=== PATIENT | female | born 1970 | race Two or more races ===

== ENCOUNTER 2017-11-16 12:16 | Emergency (ER) | payer MEDICAID ==
[~2017-11-16] VITALS: Ht 167.6 cm; Wt 80.0 kg
[2017-11-16 14:39] LABS: BASOPHILS % 0.8 % (0.0-2.0); EOSINOPHILS % 1.8 % (0.0-5.0); HEMATOCRIT. 38.9 % (36.0-48.0); HEMOGLOBIN. 13.3 g/dL (12.0-16.0); LYMPHOCYTES % 30.6 % (20.0-50.0); MEAN CORPUSCULAR HEMOGLOBIN 30.3 pg (28.0-32.0); MEAN CORPUSCULAR VOLUME 88.5 fL (81.0-99.0); MEAN PLATELET VOLUME 7.8 fl (7.4-10.4); MONOCYTES % 5.8 % (2.0-8.0); PLATELET 264 x1000/uL (130-400); RED CELL DISTRIBUTION WIDTH 13.9 % (11.6-14.6)
[2017-11-16 14:45] LABS: CHLORIDE 107 mEq/L (98-107)
[2017-11-16] MEDS ORDERED: MORPHINE SULFATE 4 MG/ML CPJ (NOT FOR IM USE) IV STA (14:49)
[2017-11-16] MEDS ORDERED: SODIUM CHLORIDE 0.9% 1,000 ML IV ONE (14:49)
[2017-11-16] MEDS ORDERED: ONDANSETRON HCL 4MG/2ML VIAL IV STA (14:49)
[2017-11-16 14:57] LABS: T4 FREE 0.98 ng/dL (0.76-1.46)
[2017-11-16] MEDS ORDERED: KCL 10MEQ/50ML PREMIX 50 ML IV ONE (15:00)
[2017-11-16] MEDS ORDERED: DIATR MEGLU/DIATRIZOATE SOLN 30ML ONE (15:20)
[2017-11-16] MEDS ORDERED: DIATR MEGLU/DIATRIZOATE SOLN 30ML PO ONE (16:45)
[2017-11-16 16:51] LABS: CLARITY URINE CLEAR (CLEAR); COLOR URINE YELLOW (YELLOW); KETONES URINE NEGATIVE (NEGATIVE); LEUKOCYTE ESTERASE URINE NEGATIVE (NEGATIVE); NITRITE URINE NEGATIVE (NEGATIVE); OCCULT BLOOD URINE 1+ (NEGATIVE); PH URINE 5.5 (4.5-8.0); PROTEIN URINE NEGATIVE (NEGATIVE); SPECIFIC GRAVITY URINE 1.014 (1.005-1.030)
[2017-11-16 17:02] LABS: HCG SCREEN NEGATIVE
[2017-11-16 19:40] VITALS: BP 127/94
[2017-11-16] MEDS ORDERED: IOHEXOL-300 100 ML BOTTLE ONE (21:21)
== END 2017-11-16 19:57 | disposition home or self-care (01) ==
LOC: ER 12:16
DX: R10.9 Unspecified abdominal pain (principal); D25.9 Leiomyoma of uterus, unspecified; Z90.49 Acquired absence of other specified parts of digestive tract; K76.0 Fatty (change of) liver, not elsewhere classified; N83.8 Other noninflammatory disorders of ovary, fallopian tube and broad ligament; F32.9 Major depressive disorder, single episode, unspecified; F17.200 Nicotine dependence, unspecified, uncomplicated
CPT/HCPCS: 36415; 71045; 74177; 76705; 80053; 81003; 83690; 84439; 84443; 84484; 84703; 85025; 85610; 85730; 93005; 96365; 96375; 99285; J2270; J2405; J3480; J7030; Q9967; Q9963

== ENCOUNTER 2018-12-13 08:28 | Emergency (ER) | payer MEDICAID ==
[~2018-12-13] VITALS: Ht 167.6 cm; Wt 88.0 kg
[2018-12-13 10:06] LABS: HEMATOCRIT. 40.3 % (36.0-48.0); HEMOGLOBIN. 13.8 g/dL (12.0-16.0); LYMPHOCYTES % 31.8 % (20.0-50.0); MEAN CORPUSCULAR HEMOGLOBIN 30.5 pg (28.0-32.0); MEAN CORPUSCULAR VOLUME 88.9 fL (81.0-99.0); MEAN PLATELET VOLUME 7.7 fl (7.4-10.4); MONOCYTES % 6.7 % (2.0-8.0); NEUTROPHILS % 59.5 % (40.0-76.0); PLATELET 246 x1000/uL (130-400); RED BLOOD CELL COUNT 4.53 mill/uL (4.2-5.4); RED CELL DISTRIBUTION WIDTH 14.2 % (11.6-14.6)
[2018-12-13 10:07] LABS: CLARITY URINE CLEAR (CLEAR); COLOR URINE YELLOW (YELLOW); KETONES URINE NEGATIVE (NEGATIVE); LEUKOCYTE ESTERASE URINE TRACE (NEGATIVE); NITRITE URINE NEGATIVE (NEGATIVE); OCCULT BLOOD URINE 1+ (NEGATIVE); PH URINE 5.5 (4.5-8.0); PROTEIN URINE NEGATIVE (NEGATIVE); SPECIFIC GRAVITY URINE 1.012 (1.005-1.030); UROBILINOGEN URINE 0.2 E.U./dL (0.2-1.0)
[2018-12-13 10:13] LABS: CHLORIDE 108 mEq/L (98-107)
[2018-12-13 10:26] LABS: T4 FREE 1.19 ng/dL (0.76-1.46)
[2018-12-13 11:04] VITALS: BP 150/89
[2018-12-13] MEDS ORDERED: IOHEXOL-300 100 ML BOTTLE ONE (13:12)
== END 2018-12-13 12:03 | disposition home or self-care (01) ==
LOC: ER 08:43
DX: R13.10 Dysphagia, unspecified (principal); M47.892 Other spondylosis, cervical region; F32.9 Major depressive disorder, single episode, unspecified; F17.200 Nicotine dependence, unspecified, uncomplicated
CPT/HCPCS: 36415; 70491; 80053; 81003; 84439; 84443; 85025; 85610; 99284; Q9967

== ENCOUNTER 2022-04-01 18:13 | Emergency (ER) | payer MEDICAID, OTHER ==
[~2022-04-01] VITALS: Ht 167.6 cm; Wt 77.0 kg
[2022-04-01 18:35] VITALS: BP 133/100
== END 2022-04-01 18:58 | disposition left against medical advice (07) ==
LOC: ER 18:13
DX: Z53.21 Procedure and treatment not carried out due to patient leaving prior to being seen by health care provider (principal); F32.9 Major depressive disorder, single episode, unspecified

== ENCOUNTER 2023-02-26 18:05 | Emergency (ER) | payer OTHER ==
[~2023-02-26] VITALS: Ht 167.6 cm; Wt 82.0 kg
[2023-02-26 18:23] VITALS: BP 135/90; PULSE 106; TEMP 98.7; O2SAT 100
== END 2023-02-26 19:00 ==
LOC: ER 18:05
DX: R09.A2 Foreign body sensation, throat (principal)
CPT/HCPCS: 99281

== ENCOUNTER 2024-06-21 19:42 | Emergency (ER) | payer MEDICAID, OTHER ==
[~2024-06-21] VITALS: Ht 165.1 cm; Wt 87.0 kg
[2024-06-21 19:45] VITALS: BP 155/74; PULSE 89; RESP 16; TEMP 36.9; O2SAT 100
[2024-06-21 21:22] LABS: BASOPHILS % 1.1 % (0.0-2.0); EOSINOPHILS % 2.1 % (0.0-5.0); HEMATOCRIT. 39.3 % (36.0-48.0); HEMOGLOBIN. 13.2 g/dL (12.0-16.0); MEAN CORPUSCULAR HEMOGLOBIN 30.7 pg (28.0-32.0); MEAN CORPUSCULAR HGB CONC 33.6 g/dL (31.0-37.0); MEAN CORPUSCULAR VOLUME 91.4 fL (81.0-99.0); MEAN PLATELET VOLUME 7.3 fl (7.4-10.4); MONOCYTES % 5.7 % (2.0-8.0); NEUTROPHILS % 44.1 % (40.0-76.0); PLATELET 292 x1000/uL (130-400); RED CELL DISTRIBUTION WIDTH 12.8 % (11.6-14.6); WHITE BLOOD COUNT 6.1 x1000/uL (4.5-11.0)
[2024-06-21 21:27] LABS: CHLORIDE 108 mEq/L (98-107); POTASSIUM 3.7 mEq/L (3.5-5.1); SODIUM 143 mEq/L (136-145)
[2024-06-21 21:29] LABS: CALCIUM 9.1 mg/dL (8.7-10.4); CARBON DIOXIDE 25 mEq/L (21-32)
[2024-06-21 21:34] LABS: CREATININE 0.7 mg/dL (0.6-1.0); GLUCOSE 95 mg/dL (70-105); UREA NITROGEN BLOOD 8 mg/dL (9-23)
[2024-06-21 21:36] LABS: ALANINE AMINOTRANSFERASE 8 IU/L (10-49); ALBUMIN 4.1 g/dL (3.2-4.8); ASPARTATE AMINOTRANSFERASE 15 IU/L (<34); BILIRUBIN DIRECT 0.1 mg/dL (<=3.0)
[2024-06-21 21:37] LABS: BILIRUBIN TOTAL 0.4 mg/dL (0.1-1.0); PROTEIN TOTAL 6.9 g/dL (6.0-8.3)
[2024-06-21] MEDS: HYDROCODONE/ACETAMINOPHEN 10/325MG TABLET PO NR (21:59)
[2024-06-21] MEDS: KETOROLAC 30MG/ML VIAL IM NR (21:59)
[2024-06-22 03:05] LABS: CLARITY URINE CLEAR (CLEAR); COLOR URINE YELLOW (YELLOW); GLUCOSE URINE NEGATIVE (NEGATIVE); KETONES URINE TRACE (NEGATIVE); LEUKOCYTE ESTERASE URINE NEGATIVE (NEGATIVE); NITRITE URINE NEGATIVE (NEGATIVE); OCCULT BLOOD URINE TRACE (NEGATIVE); PROTEIN URINE NEGATIVE (NEGATIVE); SPECIFIC GRAVITY URINE 1.016 (1.005-1.030); UROBILINOGEN URINE 0.2 E.U./dL (0.2-1.0)
[2024-06-22] MEDS ORDERED: PROT40 MT (03:12)
[2024-06-22 06:01] LABS: RBC URINE 0-2 /hpf (0-2); SQUAMOUS EPITHELIAL CELL URINE FEW /lpf (RARE/1+); WBC URINE 0-2 /hpf (0-2)
[2024-06-22 06:02] LABS: BACTERIA URINE NONE SEEN
== END 2024-06-22 03:44 | disposition home or self-care (01) ==
LOC: ER 19:42
DX: R10.32 Left lower quadrant pain (principal); F12.10 Cannabis abuse, uncomplicated
CPT/HCPCS: 99284; 74176; 80076; 80048; 83690; 85025; 36415; 81003; J1885